=== PATIENT | male | born 1995 ===

== ENCOUNTER → 2024-01-17 | Outpatient (REF) | payer OTHER ==
[2024-01-17 13:12] LABS: SEMEN APPEARANCE OPAQUE (OPAQUE); SEMEN VISCOSITY VISCOUS (LIQUID); SEMEN VOLUME 1.7 ml (2.0-5.0)
[2024-01-17 13:13] LABS: SPERM CONCENTRATION 128.1 M/ml (>=15.0); WBC CONCENTRATION <=1 M/ml (<=1 M/ml)
== END ==
LOC: M LAB REF 12:09
PROVIDERS: ATTEND Specialist
DX: N46.9 Male infertility, unspecified (principal)